=== PATIENT | female | born 1985 | race Caucasian/White ===

== ENCOUNTER 2023-06-11 07:36 | Outpatient (CLI) | payer BC | END 2023-06-11 07:37 | disposition home or self-care (01) | LOC: CSHULT 07:36 | PROVIDERS: ATTEND Urology | DX: N20.1 Calculus of ureter (principal); N28.1 Cyst of kidney, acquired; Z98.890 Other specified postprocedural states; N28.9 Disorder of kidney and ureter, unspecified | CPT/HCPCS: 76770 ==

== ENCOUNTER 2024-03-23 07:54 | Outpatient (CLI) | payer BC | END 2024-03-23 07:55 | disposition home or self-care (01) | LOC: CSHCT 07:54 | PROVIDERS: ATTEND Urology | DX: Z87.442 Personal history of urinary calculi (principal); N29 Other disorders of kidney and ureter in diseases classified elsewhere; E83.59 Other disorders of calcium metabolism; N28.1 Cyst of kidney, acquired | CPT/HCPCS: 74176 ==